=== PATIENT | female | born 1945 | race Caucasian/White ===

== ENCOUNTER 2018-10-13 10:41 | Inpatient (IN) ==
[2018-10-13] MEDS ORDERED: NS 1,000 ML IV SCH (11:30)
[2018-10-13] MEDS ORDERED: PROTONIX IV ONE (11:35)
[2018-10-13] MEDS ORDERED: SODIUM CHLORIDE 0.9% INJ ONE ×2 (11:35→19:14)
[2018-10-13 11:46] LABS: BASO# 0.02 X1000 (0.0-0.2); BASO% 0.3 % (0.0-0.8); EOS# 0.04 X1000 (0.0-0.7); EOS% 0.5 % (0.0-10.0); HEMATOCRIT 28.2 % (37.0-47.0); HEMOGLOBIN 8.4 g/dL (12.0-16.0); IMM GRAN# 0.02 X1000 (0.0-0.04); IMM GRAN% 0.3 % (0.0-0.5); LYMPH# 1.27 X1000 (1.2-3.4); LYMPH% 16.2 % (20.5-51.1); MCH 26.6 PG (27-31); MCHC 29.8 g/dL (33-37); MCV 89.2 FL (81-99); MONO# 0.46 X1000 (0.11-0.59); MONO% 5.9 % (1.7-9.3); MPV 11.2 FL (7.4-10.4); NEUT# 6.03 X1000 (1.4-6.5); NEUT% 76.8 % (42.2-75.2); PLT 248 X1000 (130-400); RBC 3.16 XMIL (4.2-5.4); RDW 14.9 % (11.5-14.5); WBC 7.84 X1000 (4.8-10.8)
[2018-10-13 12:05] LABS: INR 1.34; PROTIME 17.7 Seconds (11.0-16.0)
[2018-10-13 12:07] LABS: PTT 23.1 Seconds (22.3-41.8)
[2018-10-13 12:11] LABS: AGAP 11; ALB/GLOB RATIO 1.2; ALBUMIN 3.6 g/dL (3.5-5.0); ALKALINE PHOSPHATASE 61 U/L (32-104); BUN 37 mg/dL (8-22); CALCIUM 8.3 mg/dL (8.8-10.2); CHLORIDE 109 mmol/L (98-107); COSMO 296; CREATININE 0.7 mg/dL (0.5-0.9); ESTIMATED GFR > 60; GLUCOSE 177 mg/dL (70-104); GOT 20 U/L (10-30); GPT 25 U/L (10-36); POTASSIUM 4.2 mmol/L (3.5-5.1); SODIUM 142 mmol/L (136-145); TCO2 22 mmol/L (25-35); TOTAL BILIRUBIN 0.17 mg/dL (0.20-1.00); TOTAL PROTEIN 6.5 g/dL (6.3-8.3)
[2018-10-13] MEDS ORDERED: ATIVAN IV ONE (13:13)
--- NOTE | 2018-10-13 13:27 | PROVIDER DOCUMENTATION ---
This chart was entered by Madeline Jung Scribe, acting as scribe for Janae Gustafson MD. HPI-Abdominal Pain/GI Problem - General Chief Complaint: GI Bleed Stated Complaint: N/V/WEAKNESS Time Seen by Provider: 10/13/18 11:02 Source: patient Unable to obtain history due to:: urgency Allergies/Adverse Reactions: Patient Allergies Allergy/AdvReac Type Severity Reaction Status Date / Time pineapple [Pineapple] Allergy Severe RASH Verified 11/30/12 18:45 Sulfa (Sulfonamide Allergy Unknown RASH Verified 11/29/12 15:32 Antibiotics) aripiprazole [From Abilify] Allergy Unknown Verified 10/13/18 11:30 diclofenac Allergy Unknown Verified 10/13/18 11:30 sulfamethoxazole Allergy Unknown Verified 10/13/18 11:30 [From Bactrim] trimethoprim [From Bactrim] Allergy Unknown Verified 10/13/18 11:30 Home Medications: Home Medication List Medication Instructions Recorded Confirmed Last Taken Type Furosemide [Lasix] 40 mg PO DAILY #0 tablet 08/05/12 11/29/12 12/01/12 09:45 Rx Potassium Chloride E.r. [Klor-Con] 20 meq PO DAILY #0 tablet 08/05/12 11/29/12 12/01/12 09:45 Rx Amantadine [Symmetrel] 100 mg PO BID 11/29/12 11/29/12 12/01/12 09:45 History Omeprazole [Prilosec] 20 mg PO DAILY@0700 #0 capsule 12/01/12 12/01/12 09:45 Rx Divalproex [Depakote Sprinkle] 125 mg PO BID #0 capsule 12/23/12 Unknown Rx Rivaroxaban [Xarelto] 20 mg PO DAILY #0 tablet 12/23/12 Unknown Rx - History of Present Illness-ABD Nature of Presenting Problems: 73 yowf presents to the ed with c/o vomiting blood. pt sts was on blood thinner and was told not to take the last 3 days due to blood being so thin. pt has coffee ground emesis on exam is pale and dry with diffuse abdominal tenderness to palpation Abdominal Pain Onset Location: reports: generalized abdomen Pain Radiation: reports: no radiation Quality of Pain: reports: other (tendeness to palpation) Severity in ED: reports: moderate Onset/Duration: reports: 24 hours ago Timing: reports: still present, intermittent Activities at Onset: reports: light activity Exposure to sick contacts?: No Modifying Factors: improves with: nothing. worse with: eating Associated Symptoms: reports: fatigue, nausea, vomiting, weakness. denies: b ack/neck pain, chest pain, diarrhea, fever/chills, shortness of breath, trouble walking Last BM: last night Dark Stools Present?: reports: none noticed Rectal Bleeding: reports: none # of Diarrhea Episodes: 0 Rectal Pain: reports: none # of Vomiting Episodes: 5 Emesis Description: reports: coffee grounds Bruising or Bleeding Gums?: No Similar Symptoms Previously?: No Recently seen or treated by another doctor?: Yes (has seen pcp recently) Review of Systems - Adult - REVIEW OF SYSTEMS - ADULT Constitutional: reports: fatique. denies: chills, fever Eyes: reports: no symptoms reported Ears, Nose, Mouth & Throat: reports: no symptoms reported Cardiovascular: reports: edema. denies: chest pain, palpitations Respiratory: denies: shortness of breath, wheezing Gastrointestinal: reports: see HPI, abdominal pain, hematemesis, nausea, poor appetite, vomiting. denies: diarrhea, rectal bleeding Genitourinary: reports: no symptoms reported Musculoskeletal: reports: no symptoms reported Integumentary: reports: no symptoms reported Neurological: denies: dizziness/vertigo, headache/migraines Psychiatric: reports: no symptoms reported Endocrine: reports: no symptoms reported Hematologic/Lymphatic: reports: no symptoms reported Allergic/Immunologic: reports: no symptoms reported All Other Systems: Reviewed and Negative Past History - Adult - PAST MEDICAL HISTORY-ADULT Review of Records: reports: Old Records Reviewed, Nursing Assessment Review, Medications Reviewed, Social history reviewed & non-contributory. Major Childhood Illnesses: reports: denies history Cardiovascular: reports: blood clots, HTN Respiratory: reports: denies history Gastrointestinal: reports: denies history Obstetrical/Gynecological: reports: denies history Genitourinary: reports: denies history Musculoskeletal: reports: denies history Neurological: reports: denies history Psychiatric: reports: denies history Endocrine/Immune: reports: denies history Other Conditions: reports: deaf/hard of hearing - PRIOR SURGERIES/PROCEDURES Surgical/Procedure History: reports: hysterectomy, hernia repair - IMMUNIZATION STATUS Childhood Immunizations: See Nurse Assessment Flu Vaccine: See Nurse Assessment - FAMILY HISTORY Family History: reviewed, not pertinent - SOCIAL HISTORY Smoking: denies Substance Use: denies Living Situation: family Physical Exam-General - PHYSICAL EXAM-ADULT Initial Vital Signs Reviewed: Yes - CONSTITUTIONAL General Appearance: alert, moderate distress, obese. negative: appears well - EYES Eyes: PERRL/EOMI, pale conjunctivae - HEAD, EARS, NOSE, MOUTH & THROAT HENMT: dental decay. negative: moist mucous membranes - NECK Neck: full range of motion, normal inspection - RESPIRATORY Respiratory: chest non-tender, lungs clear, normal breath sounds, increased rate (29) - CARDIOVASCULAR Cardiovascular: normal peripheral pulses, tachycardia (129) - GASTROINTESTINAL (ABDOMEN) Abdominal Exam: normal bowel sounds, soft, no organomegaly, no pulsatile mass, distended, tenderness (diffuse) - LYMPHATIC Lymphatic: no adenopathy - MUSCULOSKELETAL Back Exam: normal inspection Extremity: normal range of motion, no calf tenderness, normal capillary refill, swelling (BLE edema) - SKIN Integumentary: warm/dry, pallor - NEUROLOGIC Neurologic: grossly normal - PSYCHIATRIC Psych/Mental Status: normal mood/affect, normal thought content, normal thought process, oriented x 3, tearful Progress - PLAN OF CARE/RESULTS Progress/Plan/Lab Results: Vital Signs - 8 hr 10/13/18 10:59 Temperature 98.3 F Pulse Rate 129 H Respiratory Rate 29 H Blood Pressure 136/75 O2 Sat by Pulse Oximetry 99 Orders Category Date Time Status CBC WITH ELECTRONIC DIFF [HEME] Stat Lab 10/13/18 11:15 Results COMPREHENSIVE METABOLIC PANEL [CHEM] Stat Lab 10/13/18 11:15 Received OCCULT BLOOD NON-FECES Stat Lab 10/13/18 11:26 Uncollected OCCULT BLOOD SCREENING [STOOL] Stat Lab 10/13/18 11:26 Uncollected PROTIME WITH INR [COAG] Stat Lab 10/13/18 11:15 Received PTT [COAG] Stat Lab 10/13/18 11:15 Received TYPE & SCREEN [BBK] Stat Lab 10/13/18 11:15 Received 0.9% Sodium Chloride Inj [Ns] 1,000 ml Med 10/13/18 11:30 Active IV 125 mls/hr GI Bleed (possible) Stat Oth 10/13/18 11:26 Ordered Result Diagrams: 10/13/18 11:15 10/13/18 11:15 - REASSESSMENT Reassessment #1 Time Reassessed: 12:01 (pt is tearful on exam ) Status: unchanged Reassessment #2 Time Reassessed: 13:01 Status: improving (n) - EKG 1 Time of EKG reading by physician:: 11:30 EKG Read and Signed by:: Janae Gustafson EKG Interpretation (*Must complete 3 of following elements*): Normal Rate: 124 Rhythm: sinus tachycardia [place]: normal QRS: normal [place] Interval: normal ST Wave: normal Prior EKG Comparison: no prior EKG - CONSULTS/PCP/HOSPITALIST Notification #1 *Consult/PCP/Hospitalist*: dr de león pcp Time Discussed: 13:14 Consult Disposition: Admit Departure - Departure Date of Disposition Decision: 10/13/18 Time of Disposition Decision: 13:14 DIAGNOSIS: GI bleed Qualifiers: GI bleed type/associated pathology: gastric ulcer Qualified Code(s): K25.4 - Chronic or unspecified gastric ulcer with hemorrhage Nausea and vomiting Qualifiers: Vomiting type: unspecified Vomiting Intractability: non-intractable Qualified Code(s): R11.2 - Nausea with vomiting, unspecified Disposition: ADMITTED INPATIENT 09 Certified Medical Emergency: Emergent Condition: Stable Additional Freetext Instructions: ED Follow Up Instructions: You have been treated by a care provider in the Emergency Department. These instructions are being provided to you so you can have an understanding of how to care for yourself upon discharge. Upon discharge from the Emergency Department, you are responsible for making arrangements for follow-up care by a physician of your choice. Take all prescribed medications as directed. Return to the Emergency Department immediately for any new or worsening symptoms. You may call the Physician Referral phone number at [phone] to obtain a list of Physicians who are taking new patients. Referrals and Follow-Ups: Neville De León MD [Primary Care Provider] - - Critical Care Note This patient required my direct & personal management of CC.: Yes Total Time (mins): 38 Critical Care Statement: This patient required my direct personal management to treat or rule out processes, the absence of which, could potentiallly result in sudden, clinically significant life or limb threatening deterioration. Attestation - Physician/ SLOANE Attestation Patient care was provided by Advanced Practice Provider:: No The physician spent face to face time with patient:: Yes Advanced Practice Provider documentation review:: Supervising physician onsite and consulted in the evaluation and care of this patient. The physician did have a face to face encounter with the patient. This chart was documented by the indicated scribe, (Madeline Jung Scribe) and accurately reflects the services I performed and decisions made by me, Janae Gustafson MD, as attested by the provider's signature.
[2018-10-13 13:51] LABS: HEMATOCRIT 24.6 % (37.0-47.0); HEMOGLOBIN 7.3 g/dL (12.0-16.0)
--- NOTE | 2018-10-13 15:08 | EKG Report ---
Test Performed on : 10/13/2018 11:30:44 AM Test Reason : ED. NO order in [place] Blood Pressure : / mmHG Vent. Rate : 124 BPM Atrial Rate : 124 BPM P-R Int : 144 ms QRS Dur : 066 ms QT Int : 314 ms P-R-T Axes : 050 059 031 degrees QTc Int : 451 ms Sinus tachycardia. Otherwise normal ECG When compared with ECG of 29-NOV-2012 11:42, No significant change was found Unconfirmed Result
--- NOTE | 2018-10-13 20:09 | HISTORY AND PHYSICAL ---
CHIEF COMPLAINT: Vomiting of blood. Low blood pressure. Declining of hematocrit to 23. HISTORY OF PRESENT ILLNESS: She is a 73-year-old, white female, who lives in [place]. No family physician. Under the hospice care. She was admitted in [facility] in December 2017 for upper GI bleeding. She required multiple blood transfusions. At that time she also had left leg DVT. Because of GI bleeding, patient had IV filter placed followed by thrombolysis. She had EGD, showed hiatal hernia. Unable to do colonoscopy. She has been on warfarin. Last INR was subtherapeutic. Patient is receiving 2nd unit of packed RBCs. Slightly tachycardic. Blood pressure is stable. Admitted in ICU for upper GI bleeding. Family was at bedside. As a result, hospital admission was warranted and revocation of hospice care. PAST MEDICAL HISTORY: 1. History of diastolic heart failure. Ejection fraction was not known. 2. History of DVT in the left leg. 3. Hypertension. 4. Chronic anxiety. 5. Metabolic syndrome. 6. Hiatal hernia. 7. History of UTIs. 8. Deconditioning. PAST SURGICAL HISTORY: Reported hysterectomy, cystocele repair, ovarian cystectomy, hernia repair. ALLERGIES: Sulfa drugs, pineapple, Abilify, diclofenac, Bactrim. MEDICATIONS: 1. Albuterol nebulizer. 2. Celexa 1 tablet daily. 3. Flexeril 10 p.o. b.i.d. 4. Lasix 20 daily. 5. [place] 10 b.i.d. 6. Ativan 1 tablet p.o. b.i.d. 7. Protonix 40 daily. 8. MiraLAX as directed. 9. Warfarin 5 mg daily. SOCIAL HISTORY: She is a single mother of 4 kids. Lives in [place]. No smoking. No alcohol. FAMILY HISTORY: Mom is still alive. Father of lung disease. REVIEW OF SYSTEMS: HEENT: Dizziness, vomiting of blood. No vision problem. No sore throat. Neck: No goiter. No lymphadenopathy. No bruit. Cardiopulmonary: No chest pain, shortness of breath, PND, orthopnea. Gastrointestinal: No abdominal pain. Passing black melenic stool and she is in diapers. Extremities: No swelling of legs. No joint pain. Neurologic: No focal symptoms or weakness. PHYSICAL EXAMINATION: GENERAL: Patient is tachycardic. Hemodynamics were stable. Heavy set. HEENT: Atraumatic, normocephalic. Pupils equal, reactive to light. NECK: Supple. No lymphadenopathy. CHEST: Bilateral air entry. HEART: Sounds are regular. Tachycardic. Belly is soft, nontender. In diapers. No peripheral edema. No cyanosis. No obvious neurological deficits. INVESTIGATIONS: White cell count 7.8, hematocrit 24, platelets 248,000. PT 17, INR 1.3. SMA 7 is normal. BUN 37, glucose 177. LFTs were normal. ASSESSMENT AND PLAN: 1. 73-year-old white female admitted to the hospital on Coumadin. Came in with vomiting of blood, hypotension, tachycardic, transfusion as needed to maintain hematocrit 30. Serial hematocrits. GI consult email production specialist. Intravenous Protonix. Reconcile home medicines. 2. History of deep venous thrombosis and pulmonary edema status post IVC filter. 3. We will repeat the labs in the morning and the revocation of hospice care and will follow up. Discussed the plan of care with family at bedside. cc: Grzegorz Emery MD
[2018-10-13] MEDS: ATIVAN IM PRN (21:42)
[2018-10-13 22:49] LABS: HEMATOCRIT 32.2 % (37.0-47.0); HEMOGLOBIN 10.1 g/dL (12.0-16.0)
[2018-10-14 02:09] LABS: HEMATOCRIT 34.1 % (37.0-47.0); HEMOGLOBIN 10.1 g/dL (12.0-16.0)
[2018-10-14] MEDS ORDERED: SODIUM CHLORIDE 0.9% INJ SCH (07:22)
[2018-10-14] MEDS ORDERED: PROTONIX IV SCH ×2 (07:30→09:00)
[2018-10-14] MEDS ORDERED: ZOFRAN IV PRN (07:42)
[2018-10-14] MEDS: ZOFRAN IV PRN (07:54)
[2018-10-14 08:09] LABS: BASO# 0.01 X1000 (0.0-0.2); BASO% 0.2 % (0.0-0.8); EOS# 0.11 X1000 (0.0-0.7); EOS% 2.1 % (0.0-10.0); HEMATOCRIT 29.1 % (37.0-47.0); HEMOGLOBIN 8.9 g/dL (12.0-16.0); LYMPH# 1.66 X1000 (1.2-3.4); LYMPH% 32.4 % (20.5-51.1); MCH 27.6 PG (27-31); MCHC 30.6 g/dL (33-37); MCV 90.4 FL (81-99); MONO# 0.48 X1000 (0.11-0.59); MONO% 9.4 % (1.7-9.3); MPV 10.5 FL (7.4-10.4); NEUT# 2.87 X1000 (1.4-6.5); NEUT% 55.9 % (42.2-75.2); PLT 159 X1000 (130-400); RBC 3.22 XMIL (4.2-5.4); RDW 14.8 % (11.5-14.5); WBC 5.13 X1000 (4.8-10.8)
[2018-10-14 08:11] LABS: INR 1.17; PROTIME 15.9 Seconds (11.0-16.0)
[2018-10-14 08:21] LABS: AGAP 5; BUN 27 mg/dL (8-22); CALCIUM 7.8 mg/dL (8.8-10.2); CHLORIDE 116 mmol/L (98-107); COSMO 293; CREATININE 0.6 mg/dL (0.5-0.9); ESTIMATED GFR > 60; GLUCOSE 111 mg/dL (70-104); POTASSIUM 3.9 mmol/L (3.5-5.1); SODIUM 144 mmol/L (136-145); TCO2 23 mmol/L (25-35)
--- NOTE | 2018-10-14 08:43 | PROGRESS NOTE ---
DATE: 10/14/2018 SUBJECTIVE: 1. The patient finally got a bed in ICU status post 2 units of packed RBCs. No further episodes of bleeding. 2. Complains of nausea and chronic anxiety. REVIEW OF SYSTEMS: The rest of the review of systems are normal. OBJECTIVE: General Examination: Slightly tachycardic. Hemodynamics were stable. No pallor identified. Chest: Clear. Heart: Sounds are regular. Abdomen: Belly is soft, nontender. Extremities: No peripheral edema, cyanosis. Neurologic: No obvious neurological deficits. INVESTIGATIONS: CBC: White cell count 5.1, hematocrit 29, platelets 159. PT 15 and INR 1.17. ASSESSMENT AND PLAN: 1. Upper gastrointestinal bleeding. History of hiatal hernia. Discussed with Dr. Mcguire. Planning to do esophagogastroduodenoscopy. Nothing by mouth. 2. Zofran for nausea. 3. Continue to monitor hemodynamic, as well as support. 4. Chronic anxiety. Started on Ativan 0.5 every 8 hours. 5. Continue intravenous Protonix. 6. History of deep vein thrombosis in the left leg status post inferior vena cava filter and stopped on Coumadin. Based on the esophagogastroduodenoscopy, further recommendations will be followed. Discussed with Dr. Mcguire at bedside. LEVEL OF DOCUMENTATION: 25 minutes. cc: Grzegorz Emery MD
--- NOTE | 2018-10-14 09:46 | GASTROENTEROLOGY CONSULTATION ---
DATE: 10/14/2018 REASON FOR CONSULTATION: Hematemesis. HISTORY OF PRESENT ILLNESS: Mrs. Germaine Brooks is a 73-year-old woman with past medical history of diastolic heart failure, hypertension, metabolic syndrome, hiatal hernia, UTIs, recurrent history of DVT, status post status post IVC filter, prior upper GI bleeding, who presents with acute onset hematemesis with bright red blood and coffee ground emesis as well as melena that started the day prior to admission. The patient complains of associated epigastric and lower abdominal pain. No fevers, dizziness, chest pain. She does have chronic shortness of breath at baseline. She is on Coumadin for her DVT, last INR yesterday was 1.3. PAST MEDICAL HISTORY: Diastolic heart failure history of DVT, hypertension, chronic anxiety, metabolic syndrome, hiatal hernia, history of UTIs, deconditioning, history of GI bleed in December 2017 status post EGD that showed hiatal hernia. PAST SURGICAL HISTORY: Hysterectomy, cystocele repair, ovarian cystectomy, hernia repair, exploratory laparotomy. ALLERGIES: Bactrim, Abilify, diclofenac, sulfa. MEDICATIONS: Albuterol, Celexa, Flexeril, Lasix, [place], Ativan, Protonix, MiraLAX, warfarin. FAMILY HISTORY: No family history of GI malignancies. Father reportedly had ulcers. SOCIAL HISTORY: No smoking, alcohol or drug use. REVIEW OF SYSTEMS: As per HPI, otherwise 12 point review of systems negative. PHYSICAL EXAMINATION: Vital Signs: Temperature 98 degrees, heart rate 98, blood pressure 123/72, respiratory rate 23, O2 saturation 100% on 2 L nasal cannula. General: The patient is awake, alert, no acute distress. HEENT: Sclerae anicteric. Moist mucous membranes. She does have some coffee grounds in her nares and around her lips. Neck: Supple. No JVD. Cardiac: Tachycardic. No murmurs. Lungs: Clear to auscultation anteriorly. Abdomen: Obese, soft, nontender, nondistended. Normoactive bowel sounds. No rebound or guarding. Extremities: Lower extremities: No clubbing, cyanosis, or edema. NEUROLOGIC: Moving all extremities symmetrically. LABS: Hemoglobin is 8.9 from 7.3 yesterday. She did receive 2 units of blood and her hemoglobin had bumped to 10 now it's 8.9. White count is 5.1, platelets of 159,000, INR is 1.17 today from 1.34 yesterday. Sodium 144, potassium 3.9, chloride 116, CO2 23, BUN 27, creatinine 0.6. LFTs yesterday were normal. No imaging. ASSESSMENT AND PLAN: Ms Germaine Brooks is a 73-year-old woman with past medical history of deep venous thrombosis on Coumadin, prior gastrointestinal bleed, hiatal hernia, who presents with acute onset hematemesis as well as melena consistent with upper gastrointestinal bleeding. Her hemoglobin initially responded to transfusion, but now it is down. She is normotensive but tachycardic. As far as medications she is currently on Protonix 40 mg twice a day. Differential includes esophagitis, esophageal and gastric ulcers, duodenal ulcers, bleeding AVMs, unlikely varices. She is currently NPO. We will plan for diagnostic EGD today. INR is at goal. We are holding Coumadin for now. Colonoscopy was attempted last year when she presented with bleeding, but patient was unable to tolerate prep. This is not consistent with lower GI bleeding at this point. Thank you for this consult. We will follow with you. cc: Grzegorz Emery MD
[2018-10-14] MEDS ORDERED: DIPRIVAN 1% ONE (12:31)
--- NOTE | 2018-10-14 13:25 | OPERATIVE NOTE ---
PROCEDURE DATE: 10/14/2018 PROCEDURE: Upper GI endoscopy. PROVIDER: Enrique Mcguire MD. INDICATION: Hematemesis. MEDICATIONS: Monitored anesthesia care. PROCEDURE: Prior to the procedure, a history and physical was performed and patient's medications and allergies were reviewed. The patient's tolerance to previous anesthesia was also reviewed. The risks and benefits of the procedure and sedation options and risks were discussed with the patient. All questions were answered and informed consent was obtained. After reviewing the risks and benefits, the patient was deemed in satisfactory condition to undergo the procedure. The endoscope was passed under direct visualization. Throughout the procedure, the patient's blood pressure, pulse and oxygen saturations were monitored continuously. The endoscope was introduced through the mouth and advanced to the second part of the duodenum. The upper GI endoscopy was accomplished without difficulty. The patient tolerated the procedure well. COMPLICATIONS: No immediate complications. ESTIMATED BLOOD LOSS: None. FINDINGS: There was a large hiatal hernia found in the distal esophagus with a small amount of retained fibrous food seen within the hernia sac. This was cleared with irrigation. There was no evidence of ulcers within the sac. More distally in the fundus, there was striped gastritis with superficial ulceration. Retroflexion in the stomach showed that the ulceration was associated with this sliding hiatal hernia. The rest of the gastric body and antrum were normal. The duodenal bulb and second portion were also normal. IMPRESSION: Large sliding hiatal hernia with associated gastritis and superficial ulcerations without stigmata of recent bleeding. This likely represents the source of her hematemesis. RECOMMENDATIONS: Recommend transitioning IV PPI to p.o. twice daily and continue for 3 months, then once daily indefinitely while on anticoagulation. Advance diet as tolerated. Continue to trend hemoglobin and hematocrit daily. May resume anticoagulation upon discharge. We will sign off. Please call with any questions or concerns. cc: Grzegorz Emery MD MTDD
[2018-10-14] MEDS: PRILOSEC PO SCH (20:00)
[2018-10-15 06:28] LABS: INR 1.06; PROTIME 14.6 Seconds (11.0-16.0)
[2018-10-15 06:30] LABS: BASO# 0.01 X1000 (0.0-0.2); BASO% 0.2 % (0.0-0.8); EOS% 3.3 % (0.0-10.0); HEMATOCRIT 25.8 % (37.0-47.0); HEMOGLOBIN 8.1 g/dL (12.0-16.0); LYMPH# 1.55 X1000 (1.2-3.4); LYMPH% 25.4 % (20.5-51.1); MCH 28.8 PG (27-31); MCHC 31.4 g/dL (33-37); MCV 91.8 FL (81-99); MONO# 0.53 X1000 (0.11-0.59); MONO% 8.7 % (1.7-9.3); MPV 10.7 FL (7.4-10.4); NEUT# 3.81 X1000 (1.4-6.5); NEUT% 62.4 % (42.2-75.2); PLT 148 X1000 (130-400); RBC 2.81 XMIL (4.2-5.4); RDW 14.9 % (11.5-14.5)
[2018-10-15] MEDS: PRILOSEC PO SCH ×2 (08:36→20:59)
--- NOTE | 2018-10-15 09:21 | PROGRESS NOTE ---
DATE: 10/15/2018 VITAL SIGNS: Temperature 98.0 degrees, heart rate 100, respirations 24, blood pressure 102/71, O2 saturation on nasal oxygen 97%. LABORATORY: CPK 36, troponin less than 0.01. Hemoglobin 8.1, hematocrit 25.8, white blood count 6100. SUBJECTIVE: The patient is a 73-year-old white female patient of Dr. Emery, who came in with GI bleed. She has had DVT and intravenous filter. She was on hospice care prior to admission. She had moderate hematemesis and EGD revealed hiatal hernia with superficial ulcerations in the fundus of the stomach. She had no vomiting overnight. She did have some chest pain and initial EKG showed only sinus tachycardia. Enzymes this morning are normal as above. She has no chest pain this morning. Telemetry is stable. PLAN: Transfuse 1 unit of blood and increase activity. Attempt will be made to get her up in a chair today. She may be moved out of ICU tomorrow if hematocrit is stable, and there is no further evidence of GI bleeding. cc: MD Grzegorz Bartlett MD
[2018-10-15] MEDS ORDERED: NS 500 ML ONE (10:35)
[2018-10-16 04:59] LABS: BASO# 0.02 X1000 (0.0-0.2); BASO% 0.4 % (0.0-0.8); EOS# 0.29 X1000 (0.0-0.7); EOS% 5.7 % (0.0-10.0); HEMATOCRIT 28.7 % (37.0-47.0); HEMOGLOBIN 9.1 g/dL (12.0-16.0); IMM GRAN# 0.04 X1000 (0.0-0.04); IMM GRAN% 0.8 % (0.0-0.5); LYMPH# 1.51 X1000 (1.2-3.4); LYMPH% 29.7 % (20.5-51.1); MCH 28.5 PG (27-31); MCHC 31.7 g/dL (33-37); MONO% 9.8 % (1.7-9.3); MPV 11.3 FL (7.4-10.4); NEUT# 2.72 X1000 (1.4-6.5); NEUT% 53.6 % (42.2-75.2); PLT 123 X1000 (130-400); RBC 3.19 XMIL (4.2-5.4); RDW 15.3 % (11.5-14.5); WBC 5.08 X1000 (4.8-10.8)
[2018-10-16 05:06] LABS: INR 0.96; PROTIME 13.5 Seconds (11.0-16.0)
[2018-10-16] MEDS: PRILOSEC PO SCH ×2 (08:42→22:02)
--- NOTE | 2018-10-16 09:53 | PROGRESS NOTE ---
DATE: 10/16/2018 OBJECTIVE: Vital signs: Temperature 98, heart rate 94, respirations 25 blood pressure 125/70 O2 saturation on 98% nasal oxygen 98%. LABORATORY: White blood count 5100, hemoglobin 9.1, hematocrit 28.7. ASSESSMENT: The patient has had no further nausea or vomiting. She has had no melena. Appetite is good. She is feeling better. She is transferred to the medical floor for continued conservative care. She has been under hospice care. Warfarin continues to be held due to her GI bleeding. cc: MD Grzegorz Bartlett MD
[2018-10-16] MEDS ORDERED: MIRALAX PO PRN (11:32)
[2018-10-16] MEDS ORDERED: CELEXA PO ONE (12:02)
[2018-10-17] MEDS: CELEXA PO SCH (08:04)
--- NOTE | 2018-10-17 08:04 | EKG Report ---
Test Performed on : 10/15/2018 08:20:00 AM Test Reason : chest pain Blood Pressure : / mmHG Vent. Rate : 096 BPM Atrial Rate : 096 BPM P-R Int : 162 ms QRS Dur : 074 ms QT Int : 368 ms P-R-T Axes : 060 066 063 degrees QTc Int : 464 ms Normal sinus rhythm. Normal ECG When compared with ECG of 13-OCT-2018 11:30, (Unconfirmed) No significant change was found Unconfirmed Result
[2018-10-17] MEDS: CENTRUM SILVER PO SCH (08:05)
[2018-10-17] MEDS: SLOW-FE PO SCH (08:05)
[2018-10-17] MEDS: PRILOSEC PO SCH ×2 (08:06→20:47)
[2018-10-17] MEDS ORDERED: CITALOPRAM HYDROBROMIDE PO SCH (09:00)
[2018-10-17 10:27] LABS: BASO# 0.02 X1000 (0.0-0.2); BASO% 0.4 % (0.0-0.8); EOS# 0.22 X1000 (0.0-0.7); EOS% 4.5 % (0.0-10.0); HEMATOCRIT 33.8 % (37.0-47.0); HEMOGLOBIN 10.6 g/dL (12.0-16.0); LYMPH# 1.16 X1000 (1.2-3.4); LYMPH% 23.8 % (20.5-51.1); MCH 29.4 PG (27-31); MCHC 31.4 g/dL (33-37); MCV 93.6 FL (81-99); MONO# 0.53 X1000 (0.11-0.59); MONO% 10.9 % (1.7-9.3); MPV 10.9 FL (7.4-10.4); NEUT# 2.95 X1000 (1.4-6.5); NEUT% 60.4 % (42.2-75.2); PLT 168 X1000 (130-400); RBC 3.61 XMIL (4.2-5.4); RDW 15.8 % (11.5-14.5); WBC 4.88 X1000 (4.8-10.8)
--- NOTE | 2018-10-17 10:42 | EKG Report ---
Test Performed on : 10/14/2018 9:23:36 PM Test Reason : NO EKG ORDER FOR MUSE Blood Pressure : / mmHG Vent. Rate : 106 BPM Atrial Rate : 106 BPM P-R Int : 154 ms QRS Dur : 076 ms QT Int : 346 ms P-R-T Axes : 061 069 066 degrees QTc Int : 459 ms Sinus tachycardia. Otherwise normal ECG No previous ECGs available Unconfirmed Result
[2018-10-17] MEDS: ALBUTEROL NEB INH PRN ×2 (15:30→20:00)
--- NOTE | 2018-10-17 20:39 | PROGRESS NOTE ---
DATE: 10/17/2018 Patient is doing very well. Out of the bed . EGD showed hiatal hernia with superficial erosions, hemodynamics were stable. The patient received 3 units of packed RBCs. REVIEW OF SYSTEMS: None reported. EXAMINATION: Temperature is 98 degrees, pulse 98, blood pressure is 150/63.HEENT: Within normal limits. Neck: Supple. No lymphadenopathy. Chest: Bilateral air entry. Heart: Sounds are regular. Belly: Soft, nontender, good bowel sounds. No masses palpable. No neurological deficits. INVESTIGATIONS: CBC. White cell count 4.8, hematocrit 33, platelet 168,000. ASSESSMENT AND PLAN: 1. Upper gastrointestinal bleeding due to hiatal hernia with erosions, stable. Continue orthostatic blood pressure. 2. Chronic anxiety/depression on Celexa and lorazepam. 3. Acid reflux disease on Prilosec. Constipation on MiraLAX. 4. Discussed with the hospice. Will attempt to discharge tomorrow. LEVEL OF DOCUMENTATION: 25 minutes. cc: Grzegorz Emery MD MTDD
[2018-10-17] MEDS: ZOFRAN IV PRN (20:45)
[2018-10-17] MEDS: ATIVAN IM PRN (20:45)
[2018-10-18] MEDS ORDERED: TYLENOL PO PRN (08:52)
[2018-10-18] MEDS: CELEXA PO SCH (09:06)
[2018-10-18] MEDS: SLOW-FE PO SCH (09:06)
[2018-10-18] MEDS: CENTRUM SILVER PO SCH (09:06)
[2018-10-18] MEDS: PRILOSEC PO SCH (09:06)
[2018-10-18 11:48] VITALS: BP 144/73
--- NOTE | 2018-10-18 22:36 | DISCHARGE SUMMARY ---
ADMISSION DATE: 10/13/2018 DISCHARGE DATE: 10/18/2018 DISCHARGE DIAGNOSES: Anemia due to acute blood loss from hematemesis from hiatal hernia with superficial erosions. SECONDARY DIAGNOSES: 1. History of diastolic congestive heart failure. 2. History of deep venous thrombosis in the left leg. 3. Hypertension. 4. Chronic anxiety. 5. Metabolic syndrome. 6. Hiatal hernia. 7. History of urinary tract infection. CONSULTATIONS: Enrique Mcguire MD PROCEDURES: 1. Transfusion 3 units of packed red blood cells. 2. Esophagogastroduodenoscopy. Findings are hiatal hernia with superficial erosions. BRIEF HISTORY: Please see the H and P that was done on 10/13/2018. In brief, she is a 73-year- old, white female who has been under hospice, lives in [place], has history Diversion of the medications from hospice, came in with vomiting of blood, black, dark stools. She had extensive workup done in [facility] in the last year by this time. She had a filter placed, thrombolysis of left leg DVT. She was placed on Eliquis. Subsequently changed to Coumadin because of the cost of the medication. Next, she had incomplete colonoscopy as per the [facility] reports. She was given 3 units of packed RBCs. IV PPI. GI consult was obtained by Dr. Mcguire with above findings on EGD. Follow up with no signs of active GI bleeding noted. No orthostatic blood pressure changes noted. Stable hematocrit. LABORATORY DATA: CBC: White cell count 4.8, hematocrit 33.8, platelet count 168,000. Cardiac enzymes were negative. Sodium 144, potassium 3.9, BUN 27, creatinine 0.6, glucose 111, calcium 7.8. DISCHARGE INSTRUCTIONS: The patient was discharged to home with the following instructions. 1. Discontinue hospice care. 2. The patient needs to follow up with primary care physician in the [facility]. 3. Flexeril 10 p.o. b.i.d. 4. Multivitamin 1 tablet daily. 5. [place] 10 b.i.d. only given 20 tablets. 6. MiraLAX as needed. 7. Senna 1 tablet p.o. b.i.d. 8. Nitroglycerin as needed. 9. Protonix 40 mg daily. 10. Celexa 10 daily. 11. Potassium 10 mEq daily. 12. Lasix 20 daily. 13. Iron sulfate 1 tablet t.i.d. 14. Xanax 0.25 as needed. 15. Follow up with Dr. Mcguire and family physician in [facility]. cc: Grzegorz Emery MD MTDToma
== END 2018-10-18 14:59 | disposition home health service (06) | DRG 378 ==
LOC: SUPCPDRO → ED 10:41 → EDIPHOLD 19:28 → ICU 10-14 02:44 → 3N 10-16 11:31
PROVIDERS: ADMIT Internal Medicine; ATTEND Internal Medicine
CPT/HCPCS: 36430; 80048; 80053; 82270; 82271; 82550; 84484; 85014; 85018; 85025; 85610; 85730; 86850; 86900; 86901; 86920; 93005; 93010; 94640; 94761; 96372; 96374; 96375; 99285; A9270; C9113; J2060; J2405; J7030; J7040; P9016; S0164